=== PATIENT | female | born 1990 | race Two or more races ===

== ENCOUNTER 2024-10-30 09:25 | Outpatient (CLI) | payer OTHER | END 2024-10-30 09:30 | disposition home or self-care (01) | LOC: RAD 09:25 | DX: K80.20 Calculus of gallbladder without cholecystitis without obstruction (principal); R10.11 Right upper quadrant pain; R93.5 Abnormal findings on diagnostic imaging of other abdominal regions, including retroperitoneum ==

== ENCOUNTER 2024-11-12 06:39 | Day surgery (SDC) | payer OTHER ==
[2024-11-08 10:28] VITALS: BP 122/76
[2024-11-08 10:38] LABS: BASO % 0.6 % (0.1-1.2); EOS # 0.07 (0.04-0.54); EOS % 1.1 % (0.7-7.0); HEMATOCRIT 37.6 % (34.1-44.9); HEMOGLOBIN 12.1 g/dL (11.2-15.7); LYMPH # 1.76 (1.18-3.74); LYMPH % 27.2 % (19.3-53.1); MEAN CORPUSCULAR HEMOGLOBIN 29.2 pg (25.6-32.2); MONO # 0.53 (0.24-0.82); MONO % 8.2 % (4.7-12.5); NEUT # 4.06 (1.56-6.13); NEUT % 62.6 % (34.0-71.1); PLATELET COUNT 359 K/uL (163-369); RED BLOOD COUNT 4.15 M/uL (3.93-5.22)
[2024-11-08 10:43] LABS: PH,URINE 6.5 (5.0-8.0); URINE APPEARANCE Clear; URINE BILIRRUBIN Negative (NEGATIVE); URINE BLOOD Negative; URINE COLOR Yellow; URINE GLUCOSE Negative (NEGATIVE); URINE KETONE Negative (NEGATIVE); URINE LEUKOCYTE Negative; URINE NITRATE Negative; URINE PROTEIN Negative (NEGATIVE); URINE UROBILINOGEN 0.2 E.U./dl
[2024-11-08 10:45] LABS: URINE BACTERIA 100.3 uL (0.0-1933); URINE EPITHELIAL CELLS 10.2 uL (0.0-38.8); URINE RBC 2.2 uL (0.0-20.8); URINE WBC 2.5 uL (0.0-23.2)
[2024-11-08 11:11] LABS: INR 1.01; PARTIAL THROMBOPLASTIN TIME 25.6 SECONDS (22.0-34.0)
[2024-11-08 11:51] LABS: BILIRUBIN TOTAL 0.69 mg/dL (0.3-1.2); CALCIUM 9.1 mg/dL (8.5-10.1); CREATININE SERUM 0.42 mg/dL (0.55-1.02); GFR 171.69; GLOBULINA 3.4 G/DL (2.4-3.5); POTASSIUM 4.33 mEq/L (3.5-5.1); TOTAL PROTEIN 7.4 gm/dL (6.4-8.2)
[~2024-11-12] VITALS: Ht 157.5 cm; Wt 77.1 kg
[2024-11-12] MEDS ORDERED: METRONIDAZOLE/SODIUM CHLORIDE 500 MG/100 ML PIGGYBACK IV ONE (07:59)
[2024-11-12] MEDS ORDERED: CEFTRIAXONE SODIUM 2,000 MG VIAL ONE (07:59)
[2024-11-12] MEDS ORDERED: LIDOCAINE HCL 1%/EPINEPHRINE 20ML VIAL IJ ONE (12:00)
[2024-11-12] MEDS ORDERED: BUPIVACAINE HCL 30 ML VIAL IJ ONE (12:00)
[2024-11-12] MEDS ORDERED: PEPCID AC20 MG PO (12:18)
[2024-11-12] MEDS ORDERED: OXYCODONE HCL5 MG PO (12:19)
[2024-11-12] MEDS ORDERED: FAMOTIDINE/PF 20 MG/2 ML VIAL ONE (13:51)
[2024-11-12] MEDS ORDERED: MORPHINE SULFATE 4 MG/ML VIAL IV ONE (14:25)
== END 2024-11-12 15:20 | disposition home or self-care (01) ==
LOC: CIR.AMB 06:39 → EDSTATUS 09:00 → SURG 09:00 → CIR.AMB 09:00
PROVIDERS: ATTEND Surgery
DX: K80.10 Calculus of gallbladder with chronic cholecystitis without obstruction (principal)